=== PATIENT | female | born 1975 | race Caucasian/White ===

== ENCOUNTER 2018-02-13 13:32 | Emergency (ER) | payer OTHER ==
[2018-02-13 13:53] VITALS: BP 101/41; PULSE 70; TEMP 98.1; BMI 24.3
--- NOTE | 2018-02-13 14:14 | PDOC ---
History of Present Illness - General Chief Complaint: Injury Stated Complaint: SLAMMED RIGHT MID FINGER IN HEAVY WOOD DOOR Time Seen by Provider: 02/13/18 14:05 - History of Present Illness Initial Comments: 02/13/18 14:10 Chief complaint: Finger injury History of present illness: Patient crush the distal phalanx of the left third finger in a car door. Pain at the site. No bleeding. The nail does not feel loose. Review of systems: Distal numbness and tingling of present. There is no pain in the PIPJ or DIPJ, middle or proximal phalanges. Past medical history: The patient denies any chance of , is menstruating at present. Otherwise healthy female Social/family history reviewed and noncontributory Physical exam: Alert oriented mild distress due to pain in her left third finger. Cooperative Afebrile, vital signs normal Left hand: There is mild swelling and tenderness of the distal phalanx, third finger. The nail appears intact. There is no deformity of the bony structure of the finger. There is no swelling or tenderness of the DIP joint or PIP joint, middle or proximal phalanges. However, patient refuses to flex or extend the distal phalanx due to pain. Impression: Crush injury, rule out fracture, rule out extensor tendon injury Plan: X-ray and further orthopedic follow-up once pain is resolved to assess tendon function. Past History - Past Medical History Allergies/Adverse Reactions: Allergies Allergy/AdvReac Type Severity Reaction Status Date / Time Penicillins Allergy Severe Difficulty Verified 02/13/18 13:35 Breathing Home Medications: Ambulatory Orders Fluoxetine HCl [Prozac] 40 mg PO DAILY 02/13/18 COPD: No Psychiatric Problems: Yes (OCD) - Suicide/Smoking/Psychosocial Hx Smoking History: Never smoked Information on smoking cessation initiated: No Hx Alcohol Use: Yes (SOCIAL WINE) Drug/Substance Use Hx: No Substance Use Type: Alcohol *Physical Exam - Vital Signs Last Vital Signs Temp Pulse Resp BP Pulse Ox 98.1 F 70 16 101/41 100 02/13/18 13:34 02/13/18 13:34 02/13/18 13:34 02/13/18 13:34 02/13/18 13:34 Medical Decision Making - Medical Decision Making 02/13/18 15:09 X-ray: No obvious fracture Small abrasion at the edge of the nail was scrubbed with saline, bacitracin was applied, and a Band-Aid to cover. Splint was applied to the finger, patient more comfortable, no increased pain numbness or tingling with application. Rest elevation and ice recommended. Follow-up with hand specialist to assess tendon function as directed. *DC/Admit/Observation/Transfer Diagnosis at time of Disposition: Crushing injury of finger Qualifiers: Encounter type: initial encounter Qualified Code(s): S67.10XA - Crushing injury of unspecified finger(s), initial encounter - Discharge Dispostion Disposition: HOME Condition at time of disposition: Improved Admit: No - Referrals Referrals: Mitch Oh MD [Staff Physician] - 3 days - Patient Instructions Printed Discharge Instructions: DI for Crush Injury Additional Instructions: It is not possible to determine whether there has been a tendon injury, because you are unable to bend the finger due to pain. You will need to have you finger reexamined by a hand specialist once the pain improves to make sure there has not been a debilitating tendon injury that may affect future functioning of your finger. Continue rest, ice, wound care with bacitracin or Neosporin ointment, a Band-Aid , and splint for comfort. See hand specialist as directed in 3-5 days for reexamination. - Post Discharge Activity
== END 2018-02-13 15:16 | disposition home or self-care (01) ==
LOC: FER 13:32
DX: S67.10XA Crushing injury of unspecified finger(s), initial encounter (principal); F42.9 Obsessive-compulsive disorder, unspecified; M79.645 Pain in left finger(s)
CPT/HCPCS: 73140-TC-LT-FY; 99282-25